=== PATIENT | male | born 1965 | race Caucasian/White ===

== ENCOUNTER 2017-04-18 17:36 | Emergency (ER) | payer OTHER ==
[2017-04-18] MEDS ORDERED: DIPH/PERTUSS(ACELL)/TETANUS VAC/PF 0.5 ML SYR (>=10YO) IM ONE (18:44)
--- NOTE | 2017-04-18 18:48 | ER Document Report ---
ED Medical Screen (RME) - General Chief Complaint: Dog Bite Stated Complaint: DOG BITE/LEFT INDEX FINGER Time Seen by Provider: 04/18/17 18:41 TRAVEL OUTSIDE OF THE [place] IN LAST 30 DAYS: No - HPI Notes: 04/18/17 18:45 Patient is a 51-year-old male who presents to the ED with a dog bite to his left index finger prior to arrival. Patient states that it was his own dog. Patient states that his 2 dogs were playing catch and began to fight so he tried to separate them and got his hand caught between the two. Animal control has her dictation report. Patient states that his dog's immunizations are up-to -date and they have not been acting abnormally otherwise. He is unsure of his last tetanus. Patient still able to move his finger through range of motion. He has not had any numbness or tingling. Denies any drug allergies. Denies any other significant past medical history. I have treated and performed a rapid initial assessment of this patient. A comprehensive ED assessment and evaluation of the patient, analysis of test results and completion of medical decision making process will be conducted by additional ED providers. PHYSICAL EXAMINATION: GENERAL: Well-appearing, well-nourished and in no acute distress. LUNGS: Breath sounds clear to auscultation bilaterally and equal. No wheezes rales or rhonchi. HEART: Regular rate and rhythm without murmurs, rubs, gallops. Musculoskeletal: Left index: FROM to passive/active. Strength 5+/5. + irregular laceration noted to the anteromedial digit and to the dorsal digit. N/ V intact distal. No other bony tenderness appreciated. PSYCH: Normal mood, normal affect. SKIN: see above. - Related Data Allergies/Adverse Reactions: No Known Allergies Allergy (Verified 04/18/17 18:38) Past Medical History - Social History Chew tobacco use (# tins/day): No Frequency of alcohol use: None Drug Abuse: None - Past Medical History Cardiac Medical History: Denies: Hx Heart Attack, Hx Hypertension Pulmonary Medical History: Denies: Hx Asthma Neurological Medical History: Denies: Hx Cerebrovascular Accident, Hx Seizures Renal/ Medical History: Denies: Hx Peritoneal Dialysis GI Medical History: Denies: Hx Hepatitis, Hx Hiatal Hernia, Hx Ulcer Musculoskeltal Medical History: Infectious Medical History: Denies: Hx Hepatitis Past Surgical History: Denies: Hx Open Heart Surgery, Hx Pacemaker Physical Exam - Vital signs Vitals: Temp Pulse Resp BP Pulse Ox 97.5 F 76 16 129/93 H 99 04/18/17 17:46 04/18/17 17:46 04/18/17 17:46 04/18/17 17:46 04/18/17 17:46 Course - Vital Signs Vital signs: Temp Pulse Resp BP Pulse Ox 97.5 F 76 16 129/93 H 99 04/18/17 17:46 04/18/17 17:46 04/18/17 17:46 04/18/17 17:46 04/18/17 17:46 Doctor's Discharge - Discharge Referrals: JOSE MURGUIA PA-C [Primary Care Provider] - Follow up as needed
--- NOTE | 2017-04-18 19:27 | RADIOLOGY REPORT (SQ) ---
EXAM DESCRIPTION: HAND LEFT 3 VIEWS COMPLETED DATE/TIME: 04/18/2017 6:55 pm REASON FOR STUDY: dog bite distal left index finger COMPARISON: None. EXAM PARAMETERS: NUMBER OF VIEWS: Three views. TECHNIQUE: AP, lateral and oblique radiographic images acquired of the left hand. LIMITATIONS: None. FINDINGS: MINERALIZATION: Normal. BONES: No acute fracture or dislocation. No worrisome bone lesions. JOINTS: No effusions. SOFT TISSUES: No soft tissue swelling. No foreign body. OTHER: No other significant finding. IMPRESSION: NEGATIVE STUDY OF THE LEFT HAND. NO RADIOGRAPHIC EVIDENCE OF ACUTE INJURY. TECHNICAL DOCUMENTATION: JOB ID: [id number] [employer]- All Rights Reserved Reading location - IP/workstation name: [email or web address]
[2017-04-18] MEDS ORDERED: OXYCODONE-ACETAMINOPHEN 5-325 MG TABLET PO ONE (20:10)
[2017-04-18] MEDS ORDERED: AMOXICILLIN TRIHYDRATE 500 MG CAPSULE PO ONE (20:10)
[2017-04-18] MEDS ORDERED: AMOXICILLIN TR/POT CLAVULANATE 500-125 MG TAB PO ONE (20:10)
[2017-04-18] MEDS ORDERED: LIDOCAINE 1% INJ-PF (10 MG/ML) 30 ML SDV INJ ONE (20:10)
[2017-04-18] MEDS ORDERED: ONDANSETRON 4 MG TAB.RAPDIS PO ONE (20:10)
--- NOTE | 2017-04-18 20:12 | ER Document Report ---
ED Animal Bite - General Chief Complaint: Dog Bite Stated Complaint: DOG BITE/LEFT INDEX FINGER Time Seen by Provider: 04/18/17 18:41 Notes: Patient is a 51-year-old male that comes emergency department for chief complaint of dog bite to his left index finger. He states he was his dogs from fighting, his Yorkie bit his finger. Dogs are both vaccinated, patient is not up-to-date on his tetanus. Patient states that when he started bleeding he felt lightheaded and dizzy and threw up. He states he feels fine now other than his finger throbbing. He takes no daily prescribed medications other than a tiny dose of lisinopril. He denies any other injuries or complaints. TRAVEL OUTSIDE OF THE [place] IN LAST 30 DAYS: No - Related Data Allergies/Adverse Reactions: No Known Allergies Allergy (Verified 04/18/17 18:38) Past Medical History - General Information source: Patient - Social History Smoking Status: Never Smoker Chew tobacco use (# tins/day): No Frequency of alcohol use: None Drug Abuse: None Lives with: Family Family History: Reviewed & Not Pertinent Patient has suicidal ideation: No Patient has homicidal ideation: No - Past Medical History Cardiac Medical History: Reports: Hx Hypertension Denies: Hx Heart Attack Pulmonary Medical History: Denies: Hx Asthma Neurological Medical History: Denies: Hx Cerebrovascular Accident, Hx Seizures Renal/ Medical History: Denies: Hx Peritoneal Dialysis GI Medical History: Denies: Hx Hepatitis, Hx Hiatal Hernia, Hx Ulcer Musculoskeltal Medical History: Infectious Medical History: Denies: Hx Hepatitis Surgical Hx: Negative Past Surgical History: Denies: Hx Open Heart Surgery, Hx Pacemaker - Immunizations Immunizations up to date: Yes Hx Diphtheria, Pertussis, Tetanus Vaccination: Yes Review of Systems - Review of Systems Constitutional: No symptoms reported EENT: No symptoms reported Cardiovascular: No symptoms reported Respiratory: No symptoms reported Gastrointestinal: No symptoms reported Genitourinary: No symptoms reported Male Genitourinary: No symptoms reported Musculoskeletal: See HPI Skin: See HPI Hematologic/Lymphatic: No symptoms reported Neurological/Psychological: No symptoms reported Physical Exam - Vital signs Vitals: Temp Pulse Resp BP Pulse Ox 97.5 F 76 16 129/93 H 99 04/18/17 17:46 04/18/17 17:46 04/18/17 17:46 04/18/17 17:46 02/28/18 17:46 - General General appearance: Appears well, Anxious In distress: None - HEENT Head: Normocephalic, Atraumatic Eyes: Normal Conjunctiva: Normal Extraocular movements intact: Yes Eyelashes: Normal Pupils: PERRL Nasal: Normal Mouth/Lips: Normal Mucous membranes: Normal Pharynx: Normal Neck: Normal - Respiratory Respiratory status: No respiratory distress Breath sounds: Normal. No: Decreased air movement, Wheezing - Cardiovascular Rhythm: Regular. No: Tachycardia Heart sounds: Normal auscultation, S1 appreciated, S2 appreciated - Abdominal Inspection: Normal Tenderness: Nontender. No: Tender, Guarding - Back Back: Normal, Nontender. No: Vertebra tenderness - Extremities General upper extremity: Other - Left index finger with a very irregular flap laceration over the distal distal finger at the finger pad extending to the medial aspect of the side of the finger. Normal range of motion including at the DIP, normal capillary refill and sensation. Normal upper extremity exam otherwise General lower extremity: Normal inspection, Nontender, Normal strength, Normal temperature - Neurological Neuro grossly intact: Yes Cognition: Normal Orientation: AAOx4 [place] Coma Scale Eye Opening: Spontaneous Paul Coma Scale Verbal: Oriented Paul Coma Scale Motor: Obeys Commands Paul Coma Scale Total: 15 Speech: Normal Motor strength normal: LUE, RUE, LLE, RLE Sensory: Normal - Psychological Associated symptoms: Anxious - Skin Skin Temperature: Warm Skin Moisture: Dry Skin Color: Normal Course - Re-evaluation Re-evalutation: Tetanus updated, placing patient on Augmentin with the first dose being given now. Wound was thoroughly cleaned for closure, closure was performed enough to realign the jagged wound but not completely closed due to infection risk. No evidence of tendon or large vessel injury, x-ray was unremarkable and does not show a tuft fracture or foreign body. Discussed wound care, follow-up, return precautions with patient. Patient states understanding and agreement. - Vital Signs Vital signs: Temp Pulse Resp BP Pulse Ox 98.0 F 83 17 134/91 H 99 04/18/17 21:35 04/18/17 21:35 04/18/17 21:35 04/18/17 21:35 04/18/17 21:35 Procedures - Laceration/Wound Repair left index finger Wound length (cm): 1.5 Wound's Depth, Shape: Irregular, Flap Laceration pre-procedure: Sterile PPE donned, Sterile drapes applied, Shur- Clens applied Anesthetic type: 1% Lidocaine Volume Anesthetic (mLs): 2 Wound explored: Clean, No foreign body removed Irrigated w/ Saline (mLs): 50 Wound Debrided: Minimal Wound Repaired With: Sutures Suture Size/Type: 4:0, Nylon Number of Sutures: 6 Layer Closure?: No Post-procedure wound care: Sterile dressing applied Post-procedure NV exam normal: Yes Complications: No Discharge - Discharge Clinical Impression: Dog bite Qualifiers: Encounter type: initial encounter Qualified Code(s): W54.0XXA - Bitten by dog, initial encounter Finger laceration Qualifiers: Encounter type: initial encounter Finger: index finger Damage to nail status: without damage Foreign body presence: without foreign body Laterality: left Qualified Code(s): S61.211A - Laceration without foreign body of left index finger without damage to nail, initial encounter Condition: Stable Disposition: HOME, SELF-CARE Instructions: Tetanus Immunization Given ([facility]) Additional Instructions: The laceration has been partially closed, this will ooze and drain some over the next few days, keep clean dressing over the area, you can apply thin film of bacitracin, you can clean with soap and water gently, avoid soaking. Sutures need to be removed in 7-10 days. Take Augmentin antibiotic as prescribed. Return immediately for any signs of infection including redness, swelling, discolored discharge, fever, or any other concerning symptoms. Prescriptions: Amox Tr/Potassium Clavulanate [Augmentin 875-125 Tablet] 1 tab PO BID 7 Days tablet Forms: Return to Work Referrals: JOSE MURGUIA PA-C [Primary Care Provider] - Follow up as needed
[2017-04-18 21:42] VITALS: BP 134/91
== END 2017-04-18 21:44 | disposition home or self-care (01) ==
LOC: ER 17:36
PROC: 0HQGXZZ Repair Left Hand Skin, External Approach (ICD-10-PCS; principal; 2017-04-18)
DX: S61.251A Open bite of left index finger without damage to nail, initial encounter (principal); R42 Dizziness and giddiness; W54.0XXA Bitten by dog, initial encounter
CPT/HCPCS: 99283; 90471; 73130; 90715; 12001; S0119; J3490

== ENCOUNTER 2017-09-25 06:18 | Day surgery (SDC) | payer OTHER ==
[~2017-09-25 06:18] MED LIST: CEFAZOLIN 1 GM/D5W RTU 1 GM/50 ML RTUPB IV PRN; LIDOCAINE 1%/EPINEPHRINE INJ 20 ML VIAL ONE; POVIDONE-IODINE 5% OPH PREP SOLN 30 ML ONE; SODIUM BICARBONATE 8.4% INJ 50 MEQ/50 ML DISP.SYRIN ONE
[2017-09-25 06:46] LABS: HEMATOCRIT 42.5 % (37.9-51.0); HEMOGLOBIN 14.8 g/dL (13.5-17.0); MEAN CORPUSCULAR HEMOGLOBIN 33.3 pg (27.0-33.4); MEAN CORPUSCULAR HGB CONC 34.8 g/dL (32.0-36.0); MEAN CORPUSCULAR VOLUME 96 fl (80-97); PLATELET COUNT 201 10^3/uL (150-450); RED BLOOD COUNT 4.44 10^6/uL (4.35-5.55); WHITE BLOOD COUNT 5.7 10^3/uL (4.0-10.5)
[2017-09-25 06:53] LABS: PARTIAL THROMBOPLASTIN TIME 33.6 SEC (23.5-35.8); PROTHROMBIN TIME 13.7 SEC (11.4-15.4)
[2017-09-25] MEDS ORDERED: FENTANYL CITRATE INJ/PF 100 MCG/2 ML AMPUL ONE (07:41)
[2017-09-25] MEDS ORDERED: DEXMEDETOMIDINE INJ 80 MCG/20 ML VIAL IV ONE (07:42)
[2017-09-25] MEDS ORDERED: ONDANSETRON HCL INJ/PF 4 MG/2 ML SDV ONE ×2 (07:42→10:29)
[2017-09-25] MEDS ORDERED: PROPOFOL INJ 200 MG/20 ML VIAL IV ONE (07:42)
[2017-09-25] MEDS ORDERED: MIDAZOLAM 2 MG/2 ML INJ ONE (07:42)
[2017-09-25] MEDS ORDERED: MEPERIDINE HCL/PF INJ 25 MG/1 ML DISP.SYRIN IV PRN (08:40)
[2017-09-25] MEDS ORDERED: DIPHENHYDRAMINE HCL 50 MG/ML VIAL IV PRN (08:40)
[2017-09-25] MEDS ORDERED: MORPHINE SULFATE 10 MG/ML INJ IV PRN (08:40)
[2017-09-25] MEDS ORDERED: FENTANYL CITRATE INJ/PF 100 MCG/2 ML AMPUL IV PRN ×3 (08:40)
[2017-09-25] MEDS ORDERED: PROMETHAZINE HCL INJ 25 MG/1 ML VIAL IV PRN (08:40)
--- NOTE | 2017-09-25 09:16 | Operative Report ---
Operative Report DATE OF SURGERY: 09/25/17 PREOPERATIVE DIAGNOSIS: Biopsy-proven basal cell carcinoma of the left upper xiphoid POSTOPERATIVE DIAGNOSIS: Same OPERATION: Excision of basal cell carcinoma from the left upper xiphoid with resection of biopsy compound nevus with frozen section margin control and reconstruction with a boomerang sliding advancement flap SURGEON: KASH ADAMS ANESTHESIA: LMAC TISSUE REMOVED OR ALTERED: Basal cell carcinoma COMPLICATIONS: None ESTIMATED BLOOD LOSS: Minimal PROCEDURE: Patient seen and was marked prior to being brought into the operating room. Patient was brought into the operating room and placed on the operating room table in a [supine] position. Patient was then prepped with a Betadine scrub and Betadine solution and draped in a sterile and aseptic manner. The area was then marked. 12 O'clock was marked towards midline breast 3 O'clock was marked towards left side 6:00 was marked towards lower abdomen 9:00 was marked towards the midline The area was then anesthetized with 1% lidocaine with epinephrine and bicarbonate for its anesthetic and hemostatic effects. The area was then excised and marked at 12:00. The specimen was sent for frozen section. The results came back that the deep and lateral margins were free. We had considered a primary closure but this would go against the natural relaxed skin tension lines. A primary closure would be too tight and would have increased chance of dehiscence. This will leave more of a scar so we decided to use a boomerang sliding advancement flap reconstruction which would camouflage the scar better and take tension off of the closure so that would be less chances of complications. In her decision because there was an adjacent lesion that was biopsied and had a open wound in the same vicinity as the biopsy-proven basal cell carcinoma we decided to include this within the resection. This would lead to less confusion and surveillance in the postop period. The reconstruction that was felt to be the best for the patient was used to incorporate the complete defect. Then we went ahead and outlined the flap and anesthetized it. We then incised the flap and developed a flap maintaining the subdermal plexus. Then we undermined 360 to allow for plate like scarring and minimize trap door deformity. Throughout the case hemostasis was achieved with the bipolar. We then sutured the flap into its new position using 3-0 Vicryl for the subcutaneous and deep dermis. Skin was closed with a [running subcuticular suture] stitch using 3-0 PDS with knots being tied on the outside. We then applied tincture benzoin and Steri-Strips followed by a light pressure dressing. Patient was then reversed from anesthesia and taken to the [facility] for recovery. The patient tolerated well. There were no complications. Lesion size was approximately 1.5 x 1.3 cm was the size of the carcinoma but because of the adjacent open wound from the compound nevus resection it was decided to include that within the resection area and the reconstruction please see pathology for actual size. Portions of this note may be dictated using [employer] voice recognition software. Occasional variations and spelling and vocabulary could be possible and are unintentional. Additionally, there is a chance that some errors may not be caught or corrected. Please notify the author of any discrepancies noted or if any statements are unclear. Subjective: No complaints Objective: Vital signs stable afebrile No bleeding Dressing intact Assessment and plan: Doing well. Elevate the operative site. Resume medications. Take antibiotics for 1 day Follow-up Full instructions were given to the patient and family and they understand Portions of this note may be dictated using [employer] voice recognition software. Occasional variations and spelling and vocabulary could be possible and are unintentional. Additionally, there is a chance that some errors may not be caught or corrected. Please notify the offer of any discrepancies noted or if any statements are unclear.
--- NOTE | 2017-09-25 09:18 | Discharge Summary ---
Discharge Summary (SDC) - Discharge Final Diagnosis: Basal cell carcinoma of the left upper xiphoid Date of Surgery: 09/25/17 Condition: Good Treatment or Instructions: Leave the top dressing on for 2 days, then removed. Leave the steri-strip tapes on for 5 days, then removal. Then cleaning wound with peroxide and apply Neosporin/bacitracin 3 times per day. Antibiotics for 1 day, then discontinue. Elevate operative area to decrease swelling. Do not strain, or lift heavy objects. Call for excessive bleeding, increased temperature of 101, uncontrolled pain, or excessive nausea or vomiting. You may reach Dr. Juarez through his office at [phone]. In the event of an emergency after hours, then contact Dr. Juarez through [facility]. Return to the office for a postop check on . The time will be scheduled by the nursing staff of [facility] prior to discharge. Please give the patient a copy of their labs and EKG so they can bring this to their PMD. Thank you Portions of this note may be dictated using [employer] voice recognition software. Occasional variations and spelling and vocabulary could be possible and are unintentional. Additionally, there is a chance that some errors may not be caught or corrected. Please notify the offer of any discrepancies noted or if any statements are unclear. Referrals: JOSE MURGUIA PA-C [Primary Care Provider] - Discharge Diet: As Tolerated Report the Following to Your Physician Immediately: Unusual Bleeding - Do not do any excessive stretching. Do not do any excessive twisting. Sleep with chest slightly elevated. Do not do any excessive activities.
[2017-09-25] MEDS: EPHEDRINE SULFATE INJ 50 MG/1 ML AMPULE ONE ×2 (09:43→10:00)
[2017-09-25] MEDS ORDERED: VASOPRESSIN INJ 20 UNIT/1 ML VIAL ONE (10:25)
[2017-09-25] MEDS ORDERED: METOCLOPRAMIDE HCL INJ/PF 10 MG/2 ML SDV ONE (10:29)
[2017-09-25 12:41] VITALS: BP 94/61
--- NOTE | 2017-09-25 13:45 | EKG REPORT ---
SEVERITY:- NORMAL ECG - SINUS RHYTHM : Confirmed by: Andria Lee MD 25-Sep-2017 13:43:42
== END 2017-09-25 12:35 | disposition home or self-care (01) ==
LOC: OROUT 06:18
PROVIDERS: ATTEND Plastic Surgery
DX: C44.519 Basal cell carcinoma of skin of other part of trunk (principal); I10 Essential (primary) hypertension; Z79.899 Other long term (current) drug therapy; Z79.1 Long term (current) use of non-steroidal anti-inflammatories (NSAID); Z79.891 Long term (current) use of opiate analgesic; Z79.51 Long term (current) use of inhaled steroids; Z87.09 Personal history of other diseases of the respiratory system
CPT/HCPCS: 36415; 85027; 85610; 85730; 88305 ×2; 88331 ×2; 93005; 93010; 14000; J2250; J0690; J3490 ×5; J3010; J2765; J2405; J2704; 400

== ENCOUNTER → 2018-12-27 | Outpatient (CLI) | payer OTHER | LOC: OD 14:46 | PROVIDERS: ATTEND Otolaryngology | DX: J30.9 Allergic rhinitis, unspecified (principal) | CPT/HCPCS: 36415; 82785; 86003 ==

== ENCOUNTER 2019-05-03 10:18 | Emergency (ER) | payer OTHER ==
[2019-05-03] MEDS ORDERED: METHYLPREDNISOLONE ACETATE INJ 40 MG/1 ML ML IM ONE (10:32)
[2019-05-03] MEDS ORDERED: DEXAMETHASONE SOD PHOS INJ 10 MG/1 ML VIAL IM ONE (10:32)
[2019-05-03] MEDS ORDERED: CEFTRIAXONE INJ 1000 MG VIAL IM ONE (10:32)
[2019-05-03] MEDS ORDERED: ALBUTEROL SULFATE 0.083% NEB 2.5 MG/3 ML AMPUL NEB ONE (10:33)
--- NOTE | 2019-05-03 10:36 | ER Document Report ---
HPI - HPI Patient complains to provider of: Cough ongoing for several weeks. Time Seen by Provider: 05/03/19 10:26 Onset: Other - This is a 53-year-old male who presented to the emergency room today stating that he has had cough congestion with productive green sputum for 1 after sedation 4 days. Onset/Duration: Sudden Associated Symptoms: None Exacerbated by: Denies Similar symptoms previously: No Recently seen / treated by doctor: No - ROS ROS below otherwise negative: Yes - REPRODUCTIVE Reproductive: DENIES: : Past Medical History - General Information source: Patient - Social History Smoking Status: Current Every Day Smoker Cigarette use (# per day): No Chew tobacco use (# tins/day): No Smoking Education Provided: No Family History: Reviewed & Not Pertinent - Past Medical History Cardiac Medical History: Reports: Hx Hypertension - ON MEDS Denies: Hx Coronary Artery Disease, Hx Heart Attack Pulmonary Medical History: Denies: Hx Asthma, Hx Bronchitis, Hx COPD, Hx Pneumonia Neurological Medical History: Denies: Hx Cerebrovascular Accident, Hx Seizures Renal/ Medical History: Denies: Hx Peritoneal Dialysis GI Medical History: Denies: Hx Hepatitis, Hx Hiatal Hernia, Hx Ulcer Musculoskeletal Medical History: Denies Hx Arthritis Infectious Medical History: Denies: Hx Hepatitis Past Surgical History: Denies: Hx Open Heart Surgery, Hx Pacemaker - Immunizations Immunizations up to date: Yes Hx Diphtheria, Pertussis, Tetanus Vaccination: Yes Vertical Provider Document - CONSTITUTIONAL Agree With Documented VS: Yes - INFECTION CONTROL TRAVEL OUTSIDE OF THE [place] IN LAST 30 DAYS: No Course - Vital Signs Vital signs: Temp Pulse Resp BP Pulse Ox 99.4 F 128 H 16 152/91 H 98 05/03/19 10:22 05/03/19 10:22 05/03/19 10:22 05/03/19 10:22 05/03/19 10:22 Discharge - Discharge Clinical Impression: Reactive airway disease Qualifiers: Asthma severity: moderate Asthma persistence: persistent Asthma complication type: uncomplicated Qualified Code(s): J45.40 - Moderate persistent asthma, uncomplicated Disposition: HOME, SELF-CARE Instructions: Reactive Airway Disease ([facility]) Additional Instructions: Increase fluid intake. Medications as prescribed. Must follow-up with PMD in 3 to 5 days. Return for any change worsening. Prescriptions: Amoxicillin/Potassium Clav [Augmentin 875-125 Tablet] 1 tab PO Q12 #20 tablet Albuterol Sulfate [Proair HFA Inhalation Aerosol 8.5 gm MDI] 2 puff IH Q4H PRN #1 mdi PRN Reason: Referrals: BASHIR CALDERON DO [ASSOCIATE] - Follow up as needed
[2019-05-03] MEDS ORDERED: LIDOCAINE 1% INJ-PF (10 MG/ML) 30 ML SDV IM ONE (10:40)
--- NOTE | 2019-05-03 11:02 | RADIOLOGY REPORT (SQ) ---
EXAM DESCRIPTION: CHEST 2 VIEWS COMPLETED DATE/TIME: 05/03/2019 10:48 am REASON FOR STUDY: cough COMPARISON: None. TECHNIQUE: Frontal and lateral radiographic views of the chest acquired. NUMBER OF VIEWS: Two view. LIMITATIONS: None. FINDINGS: LUNGS AND PLEURA: No opacities, masses or pneumothorax. No pleural effusion. MEDIASTINUM AND HILAR STRUCTURES: No masses or contour abnormalities. HEART AND VASCULAR STRUCTURES: Heart normal size. No evidence for failure. BONES: No acute findings. HARDWARE: None in the chest. OTHER: No other significant finding. IMPRESSION: NO SIGNIFICANT RADIOGRAPHIC FINDING IN THE CHEST. TECHNICAL DOCUMENTATION: JOB ID: [id number] 2010 [employer]- All Rights Reserved Reading location - IP/workstation name: [email or web address]
[2019-05-03 11:41] VITALS: BP 146/90
== END 2019-05-03 11:39 | disposition home or self-care (01) ==
LOC: ER 10:18
DX: J45.40 Moderate persistent asthma, uncomplicated (principal); R05 Cough; F17.200 Nicotine dependence, unspecified, uncomplicated; I10 Essential (primary) hypertension
CPT/HCPCS: 94640; 99283; 96372; 71046; J3490; J1030; J0696; J1100